=== PATIENT | male | born 1990 | race Caucasian/White ===

== ENCOUNTER 2017-11-30 14:14 | Outpatient (CLI) | payer OTHER ==
--- NOTE | 2017-11-30 18:35 | Diagnostic Imaging Report ---
JULIANA REINOSO [facility] [id number] [facility] [address] [address] Report Submission Date: Nov 30, 2017 2:54:24 PM CDT Patient Study Name: FLAQUITO SALDIVAR Date: Nov 30, 2017 2:27:28 PM CDT Modality Type: DX Gender: M Description: UPPER EXTREMITY : 89 Institution: [facility] Physician: JULIANA REINOSO Left hand History: Slammed finger in car door Three views of the left 4th digit were obtained which demonstrate no evidence for acute fracture or dislocation. Mineralization and alignment is normal. Impression: No evidence for acute fracture or dislocation. Electronically signed on Nov 30, 2017 2:54:24 PM CDT by: Khushboo MAXWELL
== END 2017-11-30 14:16 ==
LOC: RAD 14:14
PROVIDERS: ATTEND Physician Assistant
DX: M79.645 Pain in left finger(s) (principal)
CPT/HCPCS: 73140